=== PATIENT | female | born 1960 | race Caucasian/White ===

== ENCOUNTER → 2017-10-23 09:03 | Outpatient (CLI) | payer BC, SELFPAY ==
[2017-10-23 10:49] LABS: Cholesterol 154 mg/dL (50-200); Glucose 85 mg/dL (70-100); HDL Cholesterol 74 mg/dL (40-60); LDL CHOLESTEROL 70 mg/dL (<100); TSH 5.48 uIU/mL (0.358-3.74); Triglyceride 36 mg/dL (30-150)
== END ==
PROVIDERS: PCP General Practice; Visit Provider General Practice
DX: Z00.00 Encounter for general adult medical examination without abnormal findings (principal); E03.9 Hypothyroidism, unspecified; Z13.220 Encounter for screening for lipoid disorders; Z13.1 Encounter for screening for diabetes mellitus
CPT/HCPCS: 36415; 80061; 82947; 83721; 84443

== ENCOUNTER 2018-01-23 10:58 | Outpatient (CLI) | payer BC, SELFPAY ==
[2018-01-23 13:03] LABS: TSH 1.82 uIU/mL (0.358-3.74)
== END 2018-01-23 11:18 ==
PROVIDERS: PCP General Practice; Visit Provider General Practice
DX: E03.9 Hypothyroidism, unspecified (principal)
CPT/HCPCS: 36415; 84443

== ENCOUNTER 2018-07-02 11:05 | Outpatient (CLI) | payer BC, SELFPAY ==
[2018-07-02 12:29] LABS: TSH 0.02 uIU/mL (0.358-3.74)
== END 2018-07-02 11:25 ==
PROVIDERS: PCP General Practice; Visit Provider General Practice
DX: E03.9 Hypothyroidism, unspecified (principal)
CPT/HCPCS: 36415; 84443

== ENCOUNTER 2018-10-20 14:48 | Outpatient (REF) | payer BC, SELFPAY | END 2018-10-20 15:08 | LOC: LBN 14:48 | PROVIDERS: PCP General Practice; Visit Provider Nurse Practitioner Family | DX: R30.0 Dysuria (principal) | CPT/HCPCS: 87077; 87086; 87186 ==

== ENCOUNTER 2018-12-23 12:35 | Outpatient (CLI) | payer BC, SELFPAY ==
--- NOTE | 2018-12-23 12:01 | DI.RAD_ITS ---
EXAM: XR CHEST 2V PA AND LATERAL INDICATION: COUGH, RT CHEST PAIN. COMPARISON: CHEST 2 VIEWS PA,LAT from 04/05/2015 TECHNIQUE: 2D digital imaging was performed. FINDINGS: The cardiac and mediastinal contours have a normal appearance. The lungs are well inflated and mary lou r. No infiltrate, effusion or pneumothorax is seen. The thoracic spine is unremarkable. IMPRESSION: No acute abnormality.
== END 2018-12-23 12:55 ==
PROVIDERS: PCP General Practice; Visit Provider General Practice
DX: R05 Cough (principal); R07.89 Other chest pain
CPT/HCPCS: 71046

== ENCOUNTER 2019-01-09 06:14 | Day surgery (SDC) | payer BC, SELFPAY ==
[2019-01-09 06:40] VITALS: BP 100/49; PULSE 74; RESP 16; TEMP 37.1; O2SAT 92
[2019-01-09] MEDS: Lactated Ringers 1,000 ML 80 ML IV (07:00)
[2019-01-09] MEDS: ceFAZolin 1 GM/50 ML BAG IVPB (07:39)
--- NOTE | 2019-01-09 08:03 | SOFT_PTH ---
PATIENT: Luisa Brown LOC: DA U#:[id number] AGE/SX: 58/F ROOM: RE01/09/[address]: Henri Bond MD : 1960 BED: DIS: 01/09/2019 SPEC #: [id number] RECD: 01/09/19 12:17 STATUS: RL REQ #: [id number] EARLE: 01/09/19 08:[address]: Henri Bond DEPT: Surgical Specimen RECD BY: Sylvia Rowan ENTERED: 01/09/19 12:17 SP TYPE: SOFT OTHR DR: Martínez Joshua Tissues: 1 - SOFT TISSUE-CYST(NOT LIPOMA) Procedures: GROSS AND MICRO LEVEL 4 Comments: [id number]
--- NOTE | 2019-01-09 08:24 | PDOC.DSDIS_ITS ---
Discharge Plan Disposition Patient Disposition: HOME Condition: Good Discharge Details Reason For Visit: Excision cyst L thumb Attending Provider: Henri Bond Primary Care Provider: Martínez Joshua Home Meds and New Rx's Prescriptions: Continued multivitamin [Multi-Day] 1 EACH tablet 1 ea PO DAILY RF: 0 clobetasol 60 GM cream 60 gm Topical PRN RF: 0 tramadol 50 MG tablet 50 mg PO TID PRNRF: 0 levothyroxine 75 mcg tablet 100 mcg PO DAILY RF: 0 Discharge Instructions Additional Instructions: Keep dressings clean and dry until return. Cover to shower. Return Jan 20 to 's office for suture removal and wound check. Take ibuprofen 600 mg every 6 hours, if needed, for pain. May use L thumb as much as your discomfort allows. Referrals: Henri Bond MD [ [facility] STAFF PHYSICIAN] - (f/u on 01/20/19.) Activity:: Activity as Tolerated Remove Dressings/Wound Care:: Do Not Remove Shower/Bathe:: Cover Diet:: As Tolerated Discharge Orders Discharge Orders: Discharge Order (Routine); Ordered 01/09/19 Ordered By: Henri Bond DS: Diagnosis Discharge Diagnosis (1) Subcutaneous mass of left thumb: Status: Acute
[2019-01-09 08:48] VITALS: BP 106/57; PULSE 59; RESP 14; TEMP 36.2; O2SAT 97
--- NOTE | 2019-01-12 12:22 | ROE_ITS ---
DATE OF PROCEDURE: January 09, 2019 PREOPERATIVE DIAGNOSIS: Subcutaneous mass, left thumb. POSTOPERATIVE DIAGNOSIS: Same. PROCEDURE: Excisional biopsy of subcutaneous mass, left thumb. ANESTHESIA: IV Regional supplemented by local infiltration. SURGEON: Henri Bond M.D. INDICATIONS: This is a 58-year-old white female who has had a basically painless mass on the palmar ulnar aspect of her left thumb for several months. The mass is located just distal to the flexion cr ease of the IP joint of the thumb. She said it appears to have been slowly enlarging. A month ago s he noticed that it was somewhat red and inflamed. Her PCP started her on antibiotics, thinking it mi ght be an infection. She has completed her course of antibiotics. The mass has not decreased in siz e during that time and she said it really was red only for a day or so. She never had any drainage. Examination showed a firm, 1 cm x 1 cm x 1.5 cm subcutaneous mass on the palmar aspect of the left th umb, located just distal to the IP joint flexion crease and on the ulnar side of the thumb. She had normal sensation to her thumb tip. She had good flexion and extension of the thumb and the mass did not appear to be involving the tendon. The mass was firm to the touch and it did not feel cystic to me. Excisional biopsy was recommended to determine the exact nature of the cyst. Presumably it was benign, but I felt that pathology was indicated to make sure it was not any kind of malignancy. The risks and complications of the procedure were explained to the patient in detail preoperatively. PROCEDURE: The patient was taken to the Operating Room on 01/09/19. She was placed supine on the op erating table and an IV regional anesthetic was administered to the left upper extremity. An incisio n was made beginning just radial to the mass at the IP joint flexion crease and extending distal beyo nd the confines of the mass. Sharp dissection was used to separate what appeared to be a well-encaps ulated lesion from the surrounding subcutaneous fat and skin. The mass was traced down to the flexor sheath of the flexor pollicis longus tendon. As the mass was being circumferentially dissected, I d id cut into the mass and there were a few drops of thick, white liquid, which looked to me like uric acid that came out. The rest of the cyst was solid however. I completed the excision with sharp dis section and then used a rongeur to remove any residual abnormal tissue. The insertion of the flexor tendon of the thumb was visualized and the tendon appeared to be normal and undamaged. The wound was irrigated with Betadine and saline solution. The wound margins were infiltrated with 0.25% Marcaine with an epinephrine solution and the skin edges were approximated with interrupted #4-0 nylon suture s. The wound was dressed with Xeroform gauze, tube gauze. The IV regional anesthesia was reversed w ithout complications. There was no breakthrough bleeding to the dressings. She was discharged to [facility] recovery room in good condition. The patient was discharged home from the Day Surgery Unit when fully recovered from her IV regional a nesthesia. She was given instructions to keep the dressings clean and dry until she follows up in my office in two weeks. She may use her left arm as much as discomfort allows. She may move her left thumb as much as the confines of the dressing allow. She was instructed to take ibuprofen 600 mg p.o . q6h p.r.n. for pain. She will follow-up with me in two weeks.
== END 2019-01-09 09:58 | disposition home or self-care (01) ==
PROVIDERS: PCP General Practice; Visit Provider Orthopaedic Surgery
PROC: (CPT 26160; principal; 2019-01-09 07:30)
DX: R22.32 Localized swelling, mass and lump, left upper limb (principal); E83.59 Other disorders of calcium metabolism
CPT/HCPCS: 11422; 88305; 88304; J0690; J1885; J2250; J2405

== ENCOUNTER 2019-04-15 11:41 | Outpatient (CLI) | payer BC, SELFPAY ==
[2019-04-15 12:27] LABS: Abs Immature Grans 0.01 k/cumm (0.0-0.09); Absolute Basophil Count 0.04 k/cumm (0.0-0.2); Absolute Eosinophil Count 0.32 k/cumm (0.0-0.7); Absolute Lymphocyte Count 1.48 k/cumm (1.2-3.4); Absolute Monocyte Count 0.65 k/cumm (0.11-0.7); Absolute Neutrophil Count 3.91 k/cumm (1.2-6.7); Basophils % 0.6; HGB 13.4 g/dL (12.0-15.5); Immature Grans % 0.2 %; Lymphocytes % 23.1; Mean Corp. HGB Concentration 33.5 g/dL (32.0-36.0); Mean Corpuscular Hemoglobin 31.7 pg (27.0-33.0); Mean Corpuscular Volume 94.6 fL (80-95); Mean Platelet Volume 9.3 fL (8.0-11.0); Monocytes % 10.1; Platelet Count 219 x1000/uL (130-400); RBC 4.23 m/cumm (4.00-5.20); RBC Distribution Width 12.4 % (11.7-14.6); White Blood Cell Count 6.41 k/cumm (4.4-10.8)
[2019-04-15 13:18] LABS: TSH 0.05 uIU/mL (0.36-3.74)
== END 2019-04-15 12:01 ==
PROVIDERS: PCP Nurse Practitioner; Visit Provider Nurse Practitioner
DX: E03.9 Hypothyroidism, unspecified (principal); R53.83 Other fatigue
CPT/HCPCS: 36415; 84443; 85025

== ENCOUNTER 2019-05-06 02:22 | Outpatient (CLI) | payer BC, SELFPAY ==
--- NOTE | 2019-05-06 15:55 | DI.MAMMO_ITS ---
EXAM: MAMMO SCREENING CLINICAL HISTORY: screening Z12.39 TECHNIQUE: Mammograms were interpreted according to the usual protocol including computer analysis w [employer] CAD system, tomosynthesis and C-view imaging. COMPARISON: 2009 to 2016 FINDINGS: The breasts are composed of heterogeneously dense fibroglandular densities, Breast Density category C . No suspicious masses or suspicious microcalcifications are seen. No skin thickening or abnormal axillary lymph nodes are seen. There has been no significant change from prior exams. IMPRESSION: BIRADS Category 1, negative mammogram. Yearly screening mammography is recommended. BREAST DENSITY: The mammogram demonstrates the patient's breast tissue is dense. Dense breast tissue is very common and is not abnormal but dense breast tissue can make it harder to find cancer on a ma mmogram. Also, dense breast tissue may increase breast cancer risk. This information about the result of the mammogram report was provided to the patient to raise their awareness. Use this report when y ou speak with the patient about their risks for breast cancer, which includes their family history. A t that time, you may recommend additional screening tests (Ultrasound or MRI) as they might be useful based on their risk. A negative radiographic report should not delay biopsy if a dominant or clinically suspicious mass is present. Up to ten percent of cancers are not identified on mammography. A negative report may reinforce clinical impression. Adenosis and dense breasts may obscure an underlying neoplasm. False positive reports average 6 to 10%.
== END 2019-05-06 02:42 ==
PROVIDERS: PCP Nurse Practitioner; Visit Provider Nurse Practitioner
DX: Z12.31 Encounter for screening mammogram for malignant neoplasm of breast (principal)
CPT/HCPCS: 77063; 77067

== ENCOUNTER 2019-09-29 03:47 | Outpatient (CLI) | payer BC, SELFPAY ==
[2019-09-30 16:14] LABS: TSH 0.22 uIU/mL (0.36-3.74)
== END 2019-09-29 04:07 ==
PROVIDERS: PCP Nurse Practitioner; Visit Provider Nurse Practitioner
DX: E03.9 Hypothyroidism, unspecified (principal)
CPT/HCPCS: 36415; 84443

== ENCOUNTER 2019-11-10 14:22 | Outpatient (REF) | payer BC, SELFPAY ==
--- NOTE | 2019-11-10 14:00 | PAPFT_PTH ---
PATIENT: Luisa Brown LOC: [facility] U#:[id number] AGE/SX: 59/F ROOM: RE11/10/[address]: YOAN Darden : 1960 BED: DIS: 11/10/2019 SPEC #: [id number] RECD: 11/10/19 16:22 STATUS: RL RESherrie #: [id number] EARLE: 11/10/19 14:[address]: Tabatha Hirsch DEPT: [facility] Cytology RECD BY: Sylvia Rowan ENTERED: 11/10/19 16:22 SP TYPE: PAPFT MIR DR: Florecita Rosado, PhD PROTOCOL OFFICER Tissues: 1 - CX/ENDOCX FOR PAP SMEARS Procedures: PAP THIN PREP/UVM Screening Comments: [id number] (UNSATISFACTORY FOR EVALUATION)
== END 2019-11-10 14:42 ==
LOC: LBN 14:22
PROVIDERS: PCP Nurse Practitioner; Visit Provider Nurse Practitioner Family
DX: Z12.4 Encounter for screening for malignant neoplasm of cervix (principal); R87.615 Unsatisfactory cytologic smear of cervix
CPT/HCPCS: 88142

== ENCOUNTER 2019-11-11 03:02 | Outpatient (CLI) | payer BC, SELFPAY ==
[2019-11-11 14:12] LABS: TSH 1.83 uIU/mL (0.36-3.74)
== END 2019-11-11 03:22 ==
PROVIDERS: PCP Nurse Practitioner; Visit Provider Nurse Practitioner
DX: E03.8 Other specified hypothyroidism (principal)
CPT/HCPCS: 36415; 84443

== ENCOUNTER 2019-12-04 14:53 | Outpatient (REF) | payer BC, SELFPAY | END 2019-12-04 15:13 | LOC: LBN 14:53 | PROVIDERS: PCP Nurse Practitioner; Visit Provider Advanced Practice Midwife | DX: R30.0 Dysuria (principal) | CPT/HCPCS: 87086 ==

== ENCOUNTER 2019-12-15 11:42 | Outpatient (REF) | payer BC, SELFPAY ==
--- NOTE | 2019-12-15 11:00 | PAPFT_PTH ---
PATIENT: Luisa Brown LOC: N U#:[id number] AGE/SX: 59/F ROOM: RE12/15/[address]: YOAN Darden : 1960 BED: DIS: 12/15/2019 SPEC #: [id number] RECD: 12/15/19 12:49 STATUS: RL REQ #: [id number] EARLE: 12/15/19 11:[address]: Tabatha Hirsch DEPT: [facility] Cytology RECD BY: Sylvia Rowan ENTERED: 12/15/19 12:49 SP TYPE: PAPFT MIR DR: Florecita Rosado, PhD CHIEF NUCLEAR MEDICINE TECHNOLOGIST Tissues: 1 - CX/ENDOCX FOR PAP SMEARS Procedures: PAP THIN PREP/UVM Screening HPV DNA PROBE Comments: [id number]
== END 2019-12-15 12:02 ==
LOC: LBN 11:42
PROVIDERS: PCP Nurse Practitioner; Visit Provider Nurse Practitioner Family
DX: Z12.4 Encounter for screening for malignant neoplasm of cervix (principal); Z11.51 Encounter for screening for human papillomavirus (HPV)
CPT/HCPCS: 88142; 87624

== ENCOUNTER 2020-08-03 00:59 | Outpatient (CLI) | payer BC, SELFPAY ==
--- NOTE | 2020-08-03 14:53 | DI.MAMMO_ITS ---
Exam(s) MAMMO SCREENING EXAM: MAMMO SCREENING CLINICAL HISTORY: screening,Z12.39. TECHNIQUE: Bilateral full field digital CC and MLO mammographic images were obtained with 3D tomosyn thesis and utilizing computer aided detection (CAD). COMPARISON: Prior mammograms dating back to 2011, the most recent being April 2019. FINDINGS: There are no CAD designations. Fibroglandular tissue pattern is again noted be dense, this decreasing the sensitivity mammogram for finding hidden underlying lesions. There are no new obvious spiculated masses nor malignant appearing microcalcification groups. A few benign microcalcifications in both breasts are again noted. There is no significant architectural distortion nor skin thickening-retraction. IMPRESSION: Dense bilateral fibroglandular tissue. No obvious radiographic evidence of malignancy nor significan t change compared to prior mammograms listed above. BI-RADS Category 1 - Negative Breast Density - Category C - Heterogeneously dense Breast density Category C or D implies that the patient has dense breast tissue. Dense breast tissue can make it harder to find cancer on a mammogram. Dense breast tissue is also associated with an incr eased risk of breast cancer. This information about the result of the mammogram report was provided to the patient to raise their awareness. Use this report when you speak with the patient about their risks for breast cancer, which includes their family history. At that time, you may recommend additional screening tests (Ultrasoun d or MRI) as these tests may add significant information. A negative radiographic report should not delay biopsy if a dominant or clinically suspicious mass is present. Up to ten percent of cancers are not identified on mammography. A negative report may reinforce clinical impression. Adenosis and dense breasts may obscure an underlying neoplasm. False positive reports average 6 to 10%. Patient will receive a letter notifying them of these results.
== END 2020-08-03 01:19 ==
PROVIDERS: PCP Nurse Practitioner; Visit Provider Nurse Practitioner
DX: Z12.31 Encounter for screening mammogram for malignant neoplasm of breast (principal)
CPT/HCPCS: 77063; 77067

== ENCOUNTER 2020-08-03 02:38 | Outpatient (CLI) | payer BC, SELFPAY ==
[2020-08-03 14:41] LABS: Hemoglobin A1C 5.4 % (<5.7)
[2020-08-03 15:49] LABS: TSH 3.73 uIU/mL (0.36-3.74)
== END 2020-08-03 02:39 | disposition home or self-care (01) ==
LOC: LBO 02:38
PROVIDERS: PCP Nurse Practitioner; Visit Provider Nurse Practitioner
DX: E03.9 Hypothyroidism, unspecified (principal); Z13.1 Encounter for screening for diabetes mellitus
CPT/HCPCS: 36415; 83036; 84443

== ENCOUNTER → 2021-09-11 01:52 | Outpatient (CLI) | payer BC, SELFPAY ==
--- NOTE | 2021-09-11 15:30 | DI.MAMMO_ITS ---
Exam(s) MAMMO SCREENING EXAM: MAMMO SCREENING CLINICAL HISTORY: screening. TECHNIQUE: Bilateral full field digital CC and MLO mammographic images were obtained with 3D tomosyn thesis and utilizing computer aided detection (CAD). COMPARISON: Prior mammograms were reviewed, the most recent being July 2020. FINDINGS: Fibroglandular tissue pattern is again noted be somewhat dense, this decreasing the sensitivity of th e mammogram for finding hidden underlying lesions. There are no new spiculated masses nor malignant appearing microcalcification groups. There is no significant architectural distortion nor skin thickening-retraction. IMPRESSION: No radiographic evidence of malignancy. Moderately dense fibroglandular tissue. BI-RADS Category 1 - Negative Breast Density - Category C - Heterogeneously dense Breast density Category C or D implies that the patient has dense breast tissue. Dense breast tissue can make it harder to find cancer on a mammogram. Dense breast tissue is also associated with an incr eased risk of breast cancer. This information about the result of the mammogram report was provided to the patient to raise their awareness. Use this report when you speak with the patient about their risks for breast cancer, which includes their family history. At that time, you may recommend additional screening tests (Ultrasoun d or MRI) as these tests may add significant information. A negative radiographic report should not delay biopsy if a dominant or clinically suspicious mass is present. Up to ten percent of cancers are not identified on mammography. A negative report may reinforce clinical impression. Adenosis and dense breasts may obscure an underlying neoplasm. False positive reports average 6 to 10%. Patient will receive a letter notifying them of these results.
== END ==
PROVIDERS: PCP Nurse Practitioner; Visit Provider Nurse Practitioner Family
DX: Z12.31 Encounter for screening mammogram for malignant neoplasm of breast (principal)
CPT/HCPCS: 77063; 77067

== ENCOUNTER 2021-12-06 02:58 | Outpatient (CLI) | payer BC, SELFPAY ==
[2021-12-06 14:13] LABS: TSH (W/Ref FT4) 3.11 uIU/mL (0.36-3.74)
== END 2021-12-06 02:59 | disposition home or self-care (01) ==
PROVIDERS: PCP Nurse Practitioner; Visit Provider Nurse Practitioner
DX: E03.9 Hypothyroidism, unspecified (principal)
CPT/HCPCS: 36415; 84443

== ENCOUNTER 2022-03-19 17:54 | Outpatient (CLI) | payer BC, SELFPAY ==
--- NOTE | 2022-03-19 17:45 | RT.EKG_ITS ---
APPROVED REPORT Exam: Resting ECG Reason for Exam: murmur heard on exam Patient Location: O HR:81 bpm ECG Measurements Heart Rate 81 AXIS AL 179 P 80 QRSd 100 QRS -1 QT 369 T 60 QTc 429 Conclusion Sinus rhythm...normal P axis, V-rate 50- 99
== END 2022-03-19 17:55 | disposition home or self-care (01) ==
LOC: DI.CM 17:55
PROVIDERS: PCP Nurse Practitioner Family; Visit Provider Physician Assistant
DX: R01.1 Cardiac murmur, unspecified (principal)
CPT/HCPCS: 93010

== ENCOUNTER 2022-07-24 01:21 | Outpatient (CLI) | payer BC, SELFPAY ==
--- NOTE | 2022-07-24 07:30 | DI.US_ITS ---
APPROVED REPORT EXAM: Comprehensive 2D, Doppler, and color-flow Echocardiogram Patient Location: Out-Patient Cyber Systems Engineer: Susan Chanel RDCS (AE) Indications: Murmur Other Information Study Quality: Adequate Conclusion Normal left ventricular wall thickness and chamber size. Ejection fraction is 60%. Wall motion is n ormal Right ventricle appears grossly normal in size and function Both atria are normal in size Aortic valve is mildly sclerotic and trileaflet without stenosis or regurgitation Structurally normal mitral valve with very mild prolapse and trace regurgitation Normal tricuspid valve with trace to mild regurgitation. Estimated right ventricular systolic pressu re is 33 mmHg Wall motion Left Ventricle The left ventricle is normal size. The left ventricular systolic function is normal. The left ventric ular ejection fraction is within the normal range. There is normal left ventricular wall thickness. T here is normal LV segmental wall motion. There is no ventricular septal defect visualized. LVEF is 60 %. Right Ventricle The right ventricle is normal size. Right ventricular systolic function is grossly normal. The RVSP i s 33 mmHg. Atria The left atrium size is normal. The right atrium size is normal. The interatrial septum is intact wit h no evidence for an atrial septal defect. Aortic Valve The aortic valve is mildly sclerotic Aortic valve is trileaflet. There is no aortic valvular stenosis . No aortic regurgitation is present. Mitral Valve The mitral valve is normal in structure. No evidence of mitral valve stenosis. Trace mitral regurgita tion. Very mild prolapse Tricuspid Valve The tricuspid valve is normal in structure. There is no tricuspid valve stenosis. Trace to mild tricu spid regurgitation. Pulmonic Valve The pulmonary valve is normal in structure. There is no pulmonic valvular stenosis. There is no pulmo olivia valvular regurgitation. Great Vessels The aortic root is normal in size. The ascending aorta is normal in size. IVC is normal in size and c ollapses >50% with inspiration. Pericardium There is no pericardial effusion. 2D Dimensions IVSD d PLAX 0.75 cm F: 0.6-1.0 LV Vol A2C d MOD 76.9 mL LVPW d PLAX 0.71 cm F: 0.6 - 1.0 LV Vol A4C d MOD 53.8 mL LVID d PLAX 3.38 cm F: 3.8 - 5.2 LV EF A4C MOD 61.4 % LVDs 2.30 cm F: 2.2 - 3.5 LV EF A2C MOD 59.2 % Ao Root d 2.97 cm F: 2.7 - 3.3 LV EF Biplane MOD 60.3 % Ao Asc Diam d 3.03 cm F: 2.3 - 3.1 SV 42.55 mL LV EF Teichholz 61.2 % SV Index 28.70 mL/m2 LVEF (Villegas's) 60.33 % F: 54 - 74 LV Volume 59.05 mL F: 46 - 106 LV Volume Index 36.30 mL/m2 F: 29 - 61 LV Vol Biplane MOD 70.5 mL FS 31.90 % M-Mode TAPSE 3.10 cm (M/F) >1.7 LV Diastology MV E' medial 0.122 (>0.07 m/s) E/A Ratio 1.4 LV E/e MED 7.30 (<14) MV E Vmax 0.89 (0.4-1.3 m/s) MV E' lateral 0.117 (>0.1 m/s) MV A Vmax 0.65 (0.4-1.3 m/s) LV E/e LAT 7.60 (<14) MV E/A Ratio 1.29 MV E/E' medial 7.31 MV E/E' lateral 7.62 Aortic Valve LVOT Area 2.74 cm2 AoV Area Vmax 2.24 cm2 LVOT Vmax 0.92 m/s AoV Area/ BSA (Vmax) 1.51 cm2/m2 LVOT Mean Eligio. 0.57 m/s ROSCOE Mean Eligio. 2.22 cm2 LVOT Peak Grad 3.4 mmHg ROSCOE Mean Eligio. Index 1.50 cm2/m2 LVOT Mean Grad 1.5 mmHg LVOT VTI 0.205 m LVOT Diam s 1.85 cm AoV Vmax 1.12 m/s Velocity Ratio 0.82 AoV Mean Eligio. 0.70 m/s AoV Peak Grad 5.0 mmHg LVOT SV 56.31 mL AoV Mean Grad 2.3 mmHg AoV VTI 0.227 m AoV Area VTI 2.48 cm2 AoV Area/ BSA (VTI) 1.68 cm/m2 Mitral Valve MV DT 242 (160-240 msec) MV PHT 70 msec MV Area PHT 3.13 cm2 MV VTI 0.333 m MV Area VTI 1.69 (4.0-6.0 cm2) Pulmonary Valve PV Vmax 0.89 (0.5-1.5 m/s) RVOT Peak Gr. 1.98 mmHg PV Peak Grad 3.2 mmHg RVOT Mean Gr. 0.95 mmHg PV Mean Grad 1.7 mmHg RVOT VTI 0.168 m PV VTI 0.232 m RVOT Vmax 0.70 m/s Tricuspid Valve TR Peak Grad 29.9 mmHg TR Vmax 2.74 m/s RA Pressure 3.00 mmHg RVSP (TR) 33.0 mmHg
== END 2022-07-24 01:41 ==
PROVIDERS: PCP Nurse Practitioner Family; Visit Provider Nurse Practitioner Family
DX: R01.1 Cardiac murmur, unspecified (principal)
CPT/HCPCS: 93306

== ENCOUNTER 2022-09-19 01:14 | Outpatient (CLI) | payer BC, SELFPAY ==
--- NOTE | 2022-09-19 07:30 | DI.MAMMO_ITS ---
Exam(s) MAMMO SCREENING EXAM: MAMMO SCREENING CLINICAL HISTORY: screening, Z12.39 TECHNIQUE: Mammograms were interpreted according to the usual protocol including computer analysis w [employer] CAD system, tomosynthesis and C-view imaging. COMPARISON: 2013 through 2021 FINDINGS: The breasts are composed of heterogeneously dense fibroglandular densities, Breast Density category C . No suspicious masses or suspicious microcalcifications are seen. No skin thickening or abnormal axillary lymph nodes are seen. There has been no significant change from prior exams. IMPRESSION: BI-RADS Category 1, Negative mammogram. Yearly screening mammography is recommended. Breast Density Category C, heterogeneously Dense. The mammogram demonstrates the patient's breast tissue is dense. Dense breast tissue is very common a nd is not abnormal but dense breast tissue can make it harder to find cancer on a mammogram. Also, de nse breast tissue may increase breast cancer risk. This information about the result of the mammogram report was provided to the patient to raise their awareness. Use this report when you speak with the patient about their risks for breast cancer, which includes their family history. At that time, you may recommend additional screening tests (Ultrasound or MRI) as they might be useful based on their r isk. A negative radiographic report should not delay biopsy if a dominant or clinically suspicious mass is present. Up to ten percent of cancers are not identified on mammography. A negative report may reinforce clinical impression. Adenosis and dense breasts may obscure an underlying neoplasm. False positive reports average 6 to 10%.
== END 2022-09-19 01:34 ==
LOC: DI 01:14
PROVIDERS: PCP Nurse Practitioner Family; Visit Provider Nurse Practitioner Family
DX: Z12.31 Encounter for screening mammogram for malignant neoplasm of breast (principal)
CPT/HCPCS: 77063; 77067

== ENCOUNTER 2022-10-03 04:07 | Outpatient (CLI) | payer BC, SELFPAY ==
[2022-10-03 09:28] LABS: Abs Immature Grans 0.01 10^3/uL (0.0-0.06); Absolute Basophil Count 0.05 10^3/uL (0.0-0.2); Absolute Eosinophil Count 0.37 10^3/uL (0.0-0.7); Absolute Lymphocyte Count 1.46 10^3/uL (1.2-3.4); Absolute Monocyte Count 0.71 10^3/uL (0.1-0.8); Absolute Neutrophil Count 3.06 10^3/uL (1.2-6.7); Basophils % 0.9; Eosinophils % 6.5; HCT 36.5 % (36.0-46.0); HGB 12.7 g/dL (11.2-15.7); Immature Grans % 0.2; Lymphocytes % 25.8; MCH 32.6 pg (27.0-33.0); MCHC 34.8 % (32.0-36.0); MCV 94 fL (80-95); MPV 9.6 fL (8.0-11.0); Monocytes % 12.5; Neutrophils % 54.1; Platelet Count 207 10^3/uL (130-400); RDW 12.8 % (11.7-14.6); RDW-SD 43.9 fL; WBC 5.66 10^3/uL (4.4-10.8)
[2022-10-03 10:49] LABS: Hemoglobin A1C 5.5 % (<5.7)
[2022-10-03 11:05] LABS: ALT 21 U/L (14-59); AST 20 U/L (15-37); Albumin 3.7 g/dL (3.4-5.0); Alkaline Phosphatase 69 U/L (46-116); Anion Gap 10.9 mmol/L (3-11); BUN 17 mg/dL (7-18); Bilirubin, Total 0.5 mg/dL (0.2-1.0); CO2 26.1 mmol/L (21.0-32.0); Calcium 8.9 mg/dL (8.5-10.1); Calculated LDL 88 mg/dL (<100); Chloride 104 mmol/L (98-107); Cholesterol 170 mg/dL (<200); Estimated GFR 62.91 (mL/min/1.73m2); Glucose 87 mg/dL (74-106); HDL Cholesterol 74 mg/dL (40-60); Potassium 3.8 mmol/L (3.5-5.1); Sodium 141 mmol/L (136-145); TSH (W/Ref FT4) 1.26 uIU/mL (0.36-3.74); Triglyceride 41 mg/dL (<150)
== END 2022-10-03 04:08 | disposition home or self-care (01) ==
PROVIDERS: PCP Nurse Practitioner Family; Visit Provider Nurse Practitioner Family
DX: E03.9 Hypothyroidism, unspecified (principal); K58.9 Irritable bowel syndrome, unspecified; Z00.00 Encounter for general adult medical examination without abnormal findings
CPT/HCPCS: 36415; 80053; 80061; 83036; 84443; 85025

== ENCOUNTER 2022-10-31 15:54 | Outpatient (REF) | payer BC, SELFPAY ==
--- NOTE | 2022-10-31 15:20 | PAPFT_PTH ---
PATIENT: Luisa Brown LOC: [facility] U#:[id number] AGE/SX: 62/F ROOM: RE10/31/[address]: Berenice Salmeron NP : 1960 BED: DIS: 10/31/2022 SPEC #: [id number] RECD: 11/01/22 18:13 STATUS: RL RESherrie #: [id number] EARLE: 10/31/22 15:[address]: Berenice Salmeron NP DEPT: [facility] Cytology RECD BY: Karen Richard ENTERED: 11/01/22 18:14 SP TYPE: PAPFT OTHR DR: Sapphire Gill NP Tissues: 1 - CX/ENDOCX FOR PAP SMEARS Procedures: PAP THIN PREP/UVM Screening HPV DNA PROBE Comments: [id number]
== END 2022-10-31 15:55 | disposition home or self-care (01) ==
LOC: LBN 15:54
PROVIDERS: PCP Nurse Practitioner Family; Visit Provider Nurse Practitioner Women's Health
DX: Z12.4 Encounter for screening for malignant neoplasm of cervix (principal); Z11.51 Encounter for screening for human papillomavirus (HPV)
CPT/HCPCS: 88142; 87624

== ENCOUNTER 2023-10-23 03:57 | Outpatient (CLI) | payer MEDICARE, SELFPAY ==
[2023-10-23 16:29] LABS: Anion Gap 8.5 mmol/L (3-11); BUN 16 mg/dL (7-18); CO2 28.5 mmol/L (21.0-32.0); CREATININE 0.9 mg/dL (0.55-1.02); Calcium 9.1 mg/dL (8.5-10.1); Chloride 105 mmol/L (98-107); Estimated GFR 70.95 (mL/min/1.73m2); Glucose 84 mg/dL (74-106); Sodium 142 mmol/L (136-145)
== END 2023-10-23 03:58 | disposition home or self-care (01) ==
LOC: LBO 03:58
PROVIDERS: PCP Nurse Practitioner Family; Visit Provider Nurse Practitioner Family
DX: E03.9 Hypothyroidism, unspecified (principal); M48.00 Spinal stenosis, site unspecified; K58.9 Irritable bowel syndrome, unspecified
CPT/HCPCS: 36415; 80048; 84443

== ENCOUNTER 2023-12-12 02:12 | Outpatient (CLI) | payer MEDICARE, SELFPAY ==
--- NOTE | 2023-12-12 07:45 | DI.MAMMO_ITS ---
Exam(s) MAMMO SCREENING EXAM: MAMMO SCREENING CLINICAL HISTORY: screening,z12.39 TECHNIQUE: Bilateral full field digital CC and MLO mammographic images were obtained with 3D tomosyn thesis and utilizing computer aided detection (CAD). COMPARISON: Available for comparison. FINDINGS: Masses/Architectural Distortion: None seen. Microcalcifications: No suspicious pleomorphic-type are seen. Skin Thickening/Nipple Retraction: None. IMPRESSION: 1. No significant interval change with no specific features of malignancy noted. 2. Unless there is more urgent need, screening mammography is recommended, as per [place] [employer] guidelines. BI-RADS Category 1 - Negative Breast Density - Category C - Heterogeneously dense Breast density category C or D implies that the patient has dense breast tissue. Dense breast tissue is very common and is not abnormal but dense breast tissue can make it harder to find cancer on a ma mmogram. Also, dense breast tissue may increase their breast cancer risk. This information about the result of the mammogram report was provided to the patient to raise their awareness. Use this report when you speak with the patient about their risks for breast cancer, which includes their family hist ory. At that time, you may recommend for more screening tests (Ultrasound or MRI) as they might be us eful based on their risk. A negative radiographic report should not delay biopsy if a dominant or clinically suspicious mass is present. Up to ten percent of cancers are not identified on mammography. A negative report may reinforce clinical impression. Adenosis and dense breasts may obscure an underlying neoplasm. False positive reports average 6 to 10%. Patient will receive a letter notifying them of these results.
== END 2023-12-12 02:32 ==
LOC: DI 02:12
PROVIDERS: PCP Nurse Practitioner Family; Visit Provider Nurse Practitioner Family
DX: Z12.31 Encounter for screening mammogram for malignant neoplasm of breast (principal)
CPT/HCPCS: 77063; 77067

== ENCOUNTER 2024-04-10 02:19 | Outpatient (CLI) | payer MEDICARE, SELFPAY ==
[2024-04-10 15:00] LABS: HCT 38.6 % (36.0-46.0); HGB 12.9 g/dL (11.2-15.7); MCHC 33.4 % (32.0-36.0); MCV 96 fL (80-95); MPV 9.4 fL (8.0-11.0); Platelet Count 206 10^3/uL (130-400); RBC 4.03 10^6/uL (3.93-5.22); RDW 12.6 % (11.7-14.6); RDW-SD 44.9 fL; WBC 7.16 10^3/uL (4.4-10.8)
[2024-04-10 15:47] LABS: Calculated LDL 66 mg/dL (<100); Cholesterol 163 mg/dL (<200); HDL Cholesterol 82 mg/dL (40-60); TSH (W/Ref FT4) 3.96 uIU/mL (0.36-3.74); Triglyceride 76 mg/dL (<150)
== END 2024-04-10 02:20 | disposition home or self-care (01) ==
PROVIDERS: PCP Nurse Practitioner Family; Visit Provider Nurse Practitioner Family
DX: E03.9 Hypothyroidism, unspecified (principal); Z51.81 Encounter for therapeutic drug level monitoring
CPT/HCPCS: 36415; 80061; 85027; 84439; 84443

== ENCOUNTER 2024-07-20 03:08 | Outpatient (CLI) | payer MEDICARE, SELFPAY ==
[2024-07-20 14:04] LABS: TSH (W/Ref FT4) 4.61 uIU/mL (0.36-3.74)
[2024-07-20 14:26] LABS: FREE T4 0.97 ng/dL (0.76-1.46)
== END 2024-07-20 03:09 | disposition home or self-care (01) ==
PROVIDERS: PCP Nurse Practitioner Family; Visit Provider Nurse Practitioner Family
DX: E03.9 Hypothyroidism, unspecified (principal)
CPT/HCPCS: 36415; 84439; 84443

== ENCOUNTER 2024-08-14 00:51 | Outpatient (CLI) | payer MEDICARE, SELFPAY ==
[2024-08-17 11:12] LABS: IgA 254 mg/dL (85-499); Interpretation (See Note); Tissue Transglutaminase IgA <4.0 CU (<20.0)
== END 2024-08-14 00:52 | disposition home or self-care (01) ==
LOC: LBO 00:52
PROVIDERS: PCP Nurse Practitioner Family; Visit Provider Nurse Practitioner Family
DX: K58.9 Irritable bowel syndrome, unspecified (principal); R19.4 Change in bowel habit
CPT/HCPCS: 36415; 82784; 83516

== ENCOUNTER 2024-09-01 15:55 | Outpatient (REF) | payer MEDICARE, SELFPAY ==
[2024-09-04 15:16] LABS: Calprotectin <50.0 mcg/g
== END 2024-09-01 15:56 | disposition home or self-care (01) ==
LOC: LBN 15:55
PROVIDERS: PCP Nurse Practitioner Family; Visit Provider Nurse Practitioner Family
DX: K58.0 Irritable bowel syndrome with diarrhea (principal); Z83.79 Family history of other diseases of the digestive system
CPT/HCPCS: 83993

== ENCOUNTER → 2024-09-29 10:23 | Outpatient (BNVA) | payer MEDICARE, SELFPAY | PROVIDERS: PCP Nurse Practitioner Family; Referring Provider Nurse Practitioner Family; Visit Provider Nurse Practitioner Gerontology | DX: N39.46 Mixed incontinence (principal); R31.29 Other microscopic hematuria; Z80.52 Family history of malignant neoplasm of bladder | CPT/HCPCS: 99213; 81002 ==

== ENCOUNTER 2024-12-16 03:25 | Outpatient (CLI) | payer MEDICARE, SELFPAY ==
--- NOTE | 2024-12-16 06:15 | DI.US_ITS ---
Exam(s) US SOFT TISSUE HEAD OR NECK EXAM: US SOFT TISSUE HEAD OR NECK CLINICAL HISTORY: lump behind left ear,r22.9. TECHNIQUE: Ultrasound was performed using standard protocol. COMPARISON: No exams were available for comparison FINDINGS: Sonographic assessment utilizing grayscale and color Doppler imaging was performed and targeted to the area of clinical concern. The area of palpable abnormality corresponds to a 4 x 3 x 5 millimeter homogeneous, circumscribed hypoechoic lesion which appears to be within the skin. IMPRESSION: The area of palpable abnormality corresponds to a 4 x 3 x 5 millimeter homogeneous, circumscribed hypoechoic lesion which appears to be within the skin. DATA REPOSITORY:
== END 2024-12-16 03:45 ==
LOC: DI 03:25
PROVIDERS: PCP Nurse Practitioner Family; Visit Provider Nurse Practitioner Family
DX: R22.0 Localized swelling, mass and lump, head (principal)
CPT/HCPCS: 76536

== ENCOUNTER 2024-12-23 07:43 | Outpatient (CLI) | payer MEDICARE, SELFPAY ==
[2024-12-23 13:59] LABS: TSH (W/Ref FT4) 0.36 uIU/mL (0.36-3.74)
== END 2024-12-23 07:44 | disposition home or self-care (01) ==
LOC: LBO 07:43
PROVIDERS: PCP Nurse Practitioner Family; Visit Provider Nurse Practitioner Family
DX: E03.9 Hypothyroidism, unspecified (principal)
CPT/HCPCS: 36415; 84443